=== PATIENT | female | born 2000 | race Caucasian/White ===

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

== ENCOUNTER → 2019-03-05 | Outpatient (CLI) | payer OTHER ==
[~2019-03-05] MED LIST changes: +IBUP800 PO
== END | disposition home or self-care (01) ==
LOC: LAB 15:41 → LAB SHORT 15:41
DX: Z34.00 Encounter for supervision of normal first pregnancy, unspecified trimester (principal)
CPT/HCPCS: 87081; 87653

== ENCOUNTER 2019-03-19 16:20 | Inpatient (IN) | payer OTHER ==
[~2019-03-19] VITALS: Ht 170.2 cm; Wt 77.3 kg
[~2019-03-19 16:20] MED LIST changes: -IBUP800 PO
[2019-03-19 17:10] LABS: BASOPHILS ABSOLUTE AUTO 0.03 K/mm3 (0.00-0.23); BASOPHILS PERCENT AUTO 0 % (0-2); EOSINOPHILS ABSOLUTE AUTO 0.09 K/mm3 (0.00-0.68); EOSINOPHILS PERCENT AUTO 1 % (0-6); Hematocrit 32.4 % (33.0-51.0); Hemoglobin 9.9 g/dL (11.5-16.0); IMMATURE GRAN ABSOLUTE AUTO 0.16 K/mm3 (0.00-0.10); IMMATURE GRAN PERCENT AUTO 2 % (0-1); LYMPHOCYTES ABSOLUTE AUTO 1.64 K/mm3 (0.84-5.20); LYMPHOCYTES PERCENT AUTO 18 % (21-46); MONOCYTES ABSOLUTE AUTO 0.85 K/mm3 (0.16-1.47); MONOCYTES PERCENT AUTO 9 % (4-13); Mean Corpuscular HGB 23.7 pg (26.0-34.0); Mean Corpuscular HGB Conc 30.6 g/dL (31.5-36.5); Mean Corpuscular Volume 78 fL (80-100); Mean Platelet Volume 11.1 fL (9.1-12.4); NEUTROPHILS ABSOLUTE AUTO 6.46 K/mm3 (1.96-9.15); NEUTROPHILS PERCENT AUTO 70 % (41-73); Platelet Count 208 K/mm3 (150-400); RDW Coefficient Variation 18.1 % (11.7-14.2); RDW Standard Deviation 48.4 fL (35.1-46.3); Red Blood Cell Count 4.17 M/mm3 (3.80-5.20); White Blood Cell Count 9.23 K/mm3 (4.00-11.30)
[2019-03-19 17:41] LABS: Alanine Aminotransfer (ALT/SGP 15 U/L (12-78); Albumin, Blood 2.4 g/dL (3.4-5.0); Albumin/Globulin Ratio 0.6 (0.8-1.8); Alk Phos 194 U/L (50-136); Anion Gap 7 mmol/L (6-16); Aspartate Aminotrans (AST/SGOT 16 U/L (12-37); Bilirubin, Total 0.3 mg/dL (0.1-1.0); Blood Urea Nitrogen 6 mg/dL (8-24); Bun/Creatinine Ratio 8.2 (12.0-20.0); CO2, Blood 25 mmol/L (21-32); Calcium, Blood 8.7 mg/dL (8.5-10.1); Chloride, Blood 107 mmol/L (98-108); Creatinine, Blood 0.73 mg/dL (0.40-1.00); Glomerular Filtration Rate >60 (60-); Glucose, Blood 84 mg/dL (70-99); Potassium, Blood 3.6 mmol/L (3.5-5.5); Sodium, Blood 139 mmol/L (136-145); Total Protein, Blood 6.4 g/dL (6.4-8.2)
[2019-03-19 18:36] LABS: Creatinine, Urine Random 72.8 mg/dL (27.00-270.00)
[2019-03-19 18:43] LABS: Protein, Urine Random 385.1 mg/dL (0.0-11.9); Protein/Creat Ratio, Ur Random 5.3
--- NOTE | 2019-03-19 19:00 | NUR ---
REPORT TO LAWN CARE WORKER. ADMITTED TO ROOM 118, ON HER WAY IN TO DECIDE ON ORDERS PT'S VE WAS 3 IN OFFICE TODAY.
--- NOTE | 2019-03-20 07:45 | NUR ---
ASSUMED CARE OF PT. REPORT RECEIVED FROM Lynn EDWARDS RN. I AGREE WITH PRIOR ASSESSMENT. PROVIDER AT BEDSIDE FOR VE. WILL PREPARE FOR PUSHING.
--- NOTE | 2019-03-20 14:03 | NUR ---
REPORT TO LUIS DANIEL HUYNH
[2019-03-21 05:14] LABS: Hemoglobin 8.1 g/dL (11.5-16.0); Mean Corpuscular HGB 23.1 pg (26.0-34.0); Mean Corpuscular Volume 77 fL (80-100); Mean Platelet Volume 11.3 fL (9.1-12.4); Platelet Count 146 K/mm3 (150-400); RDW Coefficient Variation 18.6 % (11.7-14.2); RDW Standard Deviation 49.1 fL (35.1-46.3); Red Blood Cell Count 3.51 M/mm3 (3.80-5.20); White Blood Cell Count 10.25 K/mm3 (4.00-11.30)
[2019-03-21] MEDS ORDERED: IBUP800 PO (11:09)
== END 2019-03-21 13:55 | disposition home or self-care (01) | DRG 807 ==
LOC: OBS 16:20 → BC 16:20 → OBS 19:01 → BC 19:02
PROVIDERS: ADMIT Obstetrics & Gynecology
PROC: 3E033VJ Introduction of Other Hormone into Peripheral Vein, Percutaneous Approach (ICD-10-PCS; 2019-03-19)
PROC: 10E0XZZ Delivery of Products of Conception, External Approach (ICD-10-PCS; principal; 2019-03-20)
PROC: 10907ZC Drainage of Amniotic Fluid, Therapeutic from Products of Conception, Via Natural or Artificial Opening (ICD-10-PCS; 2019-03-20)
PROC: 0HQ9XZZ Repair Perineum Skin, External Approach (ICD-10-PCS; 2019-03-20)
PROC: 3E0R3BZ Introduction of Anesthetic Agent into Spinal Canal, Percutaneous Approach (ICD-10-PCS; 2019-03-20)
DX: O14.94 Unspecified pre-eclampsia, complicating childbirth (principal); Z37.0 Single live birth; Z3A.37 37 weeks gestation of pregnancy; O70.0 First degree perineal laceration during delivery; O77.0 Labor and delivery complicated by meconium in amniotic fluid; Z87.891 Personal history of nicotine dependence
CPT/HCPCS: 36415; 51702; 59025; 80053; 82570; 84156; 85025; 85027; J1885; J2001; J2405; J2590; J3010; J7120

== ENCOUNTER → 2019-06-18 | Outpatient (CLI) | payer OTHER ==
[~2019-06-18] MED LIST changes: +IBUP800 PO
[2019-06-18 16:52] LABS: Source, Urine Clean Catch
[2019-06-18 18:17] LABS: Bilirubin, Urine Neg (Neg); Blood, Urine 5+ (Neg); Glucose Qualitative, Urine Neg (Neg); Ketones, Urine 1+ (Neg); Leukocyte Esterase, Urine 3+ (Neg); Nitrite, Urine Neg (Neg); Protein, Urine 3+ (Neg); Specific Gravity, Urine 1.015 (1.003-1.022); Urobilinogen, Urine NORM (Normal)
[2019-06-18 18:39] LABS: Appearance, Urine Clear (Clear); Color, Urine Yellow (P-Yellow)
[2019-06-18 18:40] LABS: White Blood Cells, Urine TNTC /hpf (0-5)
[2019-06-18 18:42] LABS: Bacteria Many /hpf; Squamous Epithelial Cells Few /hpf (Few); Yeast/Fungi Urine Rare /hpf
== END | disposition home or self-care (01) ==
LOC: LAB UCHC 15:00 → LAB 15:00 → LAB SHORT 15:00
PROVIDERS: Obstetrics & Gynecology
DX: R31.9 Hematuria, unspecified (principal)
CPT/HCPCS: 81001; 87077; 87086; 87186

== ENCOUNTER 2019-08-29 14:17 | Emergency (ER) | payer OTHER ==
[~2019-08-29] VITALS: Ht 170.2 cm; Wt 56.2 kg
[2019-08-29 15:29] LABS: Source, Urine Clean Catch
[2019-08-29 15:35] LABS: Bilirubin, Urine Neg (Neg); Blood, Urine 5+ (Neg); Glucose Qualitative, Urine Neg (Neg); Ketones, Urine 1+ (Neg); Leukocyte Esterase, Urine 3+ (Neg); Nitrite, Urine Neg (Neg); Protein, Urine 4+ (Neg); Urobilinogen, Urine 2+ (Normal)
[2019-08-29 15:40] LABS: Influenza A Negative (NEGATIVE); Influenza B Negative (NEGATIVE)
[2019-08-29 15:58] LABS: Appearance, Urine Cloudy (Clear); Color, Urine Amber (P-Yellow)
[2019-08-29 16:00] LABS: Red Blood Cells, Urine TNTC /hpf (0-2); White Blood Cells, Urine TNTC /hpf (0-5)
[2019-08-29 16:01] LABS: Bacteria Many /hpf; Squamous Epithelial Cells Mod /hpf (Few)
[2019-08-29] MEDS ORDERED: Macrobid 100 M100 MG PO (18:05)
[2019-08-29] MEDS ORDERED: Zofran4 MG PO (18:05)
== END 2019-08-29 18:17 | disposition home or self-care (01) ==
LOC: ER 14:17
PROVIDERS: Physician Assistant
DX: N39.0 Urinary tract infection, site not specified (principal); B34.9 Viral infection, unspecified; Z88.8 Allergy status to other drugs, medicaments and biological substances; Z87.891 Personal history of nicotine dependence
CPT/HCPCS: 81001; 81025; 87077; 87081; 87086; 87185; 87186; 87430; 87804; 99283; J1100

== ENCOUNTER 2020-09-06 09:45 | Emergency (ER) | payer OTHER ==
[~2020-09-06] VITALS: Ht 170.2 cm; Wt 52.2 kg
[~2020-09-06 09:45] MED LIST changes: +Macrobid 100 M100 MG PO; +Zofran4 MG PO
[2020-09-06] MEDS ORDERED: Zithromax250 MG PO (10:09)
== END 2020-09-06 11:00 | disposition home or self-care (01) ==
LOC: ER 09:45
DX: J02.0 Streptococcal pharyngitis (principal); Z88.1 Allergy status to other antibiotic agents; Z88.0 Allergy status to penicillin; Z88.8 Allergy status to other drugs, medicaments and biological substances
CPT/HCPCS: 99282; A9270; J1100

== ENCOUNTER → 2020-10-02 | Outpatient (CLI) | payer OTHER ==
[~2020-10-02] MED LIST changes: +Bactrim Ds Tab1 EACH PO; +Norco 5-325 Ta1 EACH PO; +ONDA4ODT MM; +Zithromax250 MG PO
[2020-10-06 16:08] LABS: CHLAMYDIA TRACHOMATIS, NAA Negative (Negative)
== END | disposition home or self-care (01) ==
LOC: PLD 19:16 → LAB SHORT 19:16
PROVIDERS: Obstetrics & Gynecology
DX: Z01.419 Encounter for gynecological examination (general) (routine) without abnormal findings (principal); Z11.3 Encounter for screening for infections with a predominantly sexual mode of transmission
CPT/HCPCS: 87491; 87591; G0123

== ENCOUNTER 2020-11-04 18:40 | Emergency (ER) | payer OTHER ==
[~2020-11-04] VITALS: Ht 170.2 cm; Wt 49.0 kg
[~2020-11-04 18:40] MED LIST changes: -Bactrim Ds Tab1 EACH PO; -Norco 5-325 Ta1 EACH PO; -ONDA4ODT MM
[2020-11-04 19:21] LABS: BASOPHILS ABSOLUTE AUTO 0.06 K/mm3 (0.00-0.23); BASOPHILS PERCENT AUTO 0 % (0-2); EOSINOPHILS ABSOLUTE AUTO 0.11 K/mm3 (0.00-0.68); EOSINOPHILS PERCENT AUTO 1 % (0-6); Hematocrit 41.9 % (33.0-51.0); IMMATURE GRAN ABSOLUTE AUTO 0.08 K/mm3 (0.00-0.10); IMMATURE GRAN PERCENT AUTO 0 % (0-1); LYMPHOCYTES ABSOLUTE AUTO 1.57 K/mm3 (0.84-5.20); LYMPHOCYTES PERCENT AUTO 8 % (21-46); MONOCYTES PERCENT AUTO 5 % (4-13); Mean Corpuscular HGB 26.9 pg (26.0-34.0); Mean Corpuscular HGB Conc 33.4 g/dL (31.5-36.5); Mean Corpuscular Volume 81 fL (80-100); Mean Platelet Volume 10.5 fL (9.1-12.4); NEUTROPHILS ABSOLUTE AUTO 16.73 K/mm3 (1.96-9.15); NEUTROPHILS PERCENT AUTO 86 % (41-73); Platelet Count 358 K/mm3 (150-400); RDW Coefficient Variation 13.6 % (11.7-14.2); RDW Standard Deviation 39.9 fL (35.1-46.3); White Blood Cell Count 19.55 K/mm3 (4.00-11.30)
[2020-11-04 19:44] LABS: Source, Urine Clean Catch
[2020-11-04 19:46] LABS: Alanine Aminotransfer (ALT/SGP 28 U/L (12-78); Albumin, Blood 4.4 g/dL (3.4-5.0); Albumin/Globulin Ratio 1.2 (0.8-1.8); Alk Phos 83 U/L (50-136); Anion Gap 6 mmol/L (6-16); Aspartate Aminotrans (AST/SGOT 14 U/L (12-37); Bilirubin, Total 0.3 mg/dL (0.1-1.0); Blood Urea Nitrogen 14 mg/dL (8-24); Bun/Creatinine Ratio 18.8 (12.0-20.0); CO2, Blood 27 mmol/L (21-32); Calcium, Blood 9.2 mg/dL (8.5-10.1); Chloride, Blood 106 mmol/L (98-108); Creatinine, Blood 0.75 mg/dL (0.40-1.00); Globulin, Blood 3.8 g/dL (2.2-4.0); Glomerular Filtration Rate >60 (60-); Glucose, Blood 122 mg/dL (70-99); Potassium, Blood 3.7 mmol/L (3.5-5.5); Sodium, Blood 139 mmol/L (136-145); Total Protein, Blood 8.2 g/dL (6.4-8.2)
[2020-11-04 19:49] LABS: Appearance, Urine Clear (Clear); Bilirubin, Urine Neg (Neg); Blood, Urine Neg (Neg); Color, Urine Amber (P-Yellow); Glucose Qualitative, Urine Neg (Neg); Ketones, Urine 1+ (Neg); Leukocyte Esterase, Urine 1+ (Neg); Nitrite, Urine Neg (Neg); Protein, Urine 2+ (Neg); Specific Gravity, Urine 1.025 (1.003-1.022); Urobilinogen, Urine 1+ (Normal)
[2020-11-04 19:55] LABS: Bacteria Many /hpf; Mucus Heavy (0-Heavy); Red Blood Cells, Urine 0-2 /hpf (0-2); Squamous Epithelial Cells Mod /hpf (Few)
[2020-11-04] MEDS ORDERED: ONDA4ODT MM (23:06)
[2020-11-04] MEDS ORDERED: Bactrim Ds Tab1 EACH PO (23:06)
== END 2020-11-04 23:46 | disposition home or self-care (01) ==
LOC: ER 18:40
PROVIDERS: Physician Assistant
DX: K52.9 Noninfective gastroenteritis and colitis, unspecified (principal); Z88.1 Allergy status to other antibiotic agents; Z88.0 Allergy status to penicillin; Z87.891 Personal history of nicotine dependence
CPT/HCPCS: 36415; 74177; 80053; 81001; 81025; 83690; 85025; 87077; 87086; 87186; 96361; 96374-59; 96375; 99284-25; A9270; J2405; J3010; J7030; Q9967

== ENCOUNTER 2021-02-09 12:32 | Emergency (ER) | payer OTHER ==
[~2021-02-09] VITALS: Ht 170.2 cm; Wt 52.2 kg
[~2021-02-09 12:32] MED LIST changes: +Bactrim Ds Tab1 EACH PO; +ONDA4ODT MM
[2021-02-09 13:26] LABS: BASOPHILS ABSOLUTE AUTO 0.04 K/mm3 (0.00-0.23); BASOPHILS PERCENT AUTO 1 % (0-2); EOSINOPHILS ABSOLUTE AUTO 0.07 K/mm3 (0.00-0.68); EOSINOPHILS PERCENT AUTO 1 % (0-6); Hematocrit 38.9 % (33.0-51.0); Hemoglobin 13.1 g/dL (11.5-16.0); IMMATURE GRAN ABSOLUTE AUTO 0.03 K/mm3 (0.00-0.10); IMMATURE GRAN PERCENT AUTO 0 % (0-1); LYMPHOCYTES ABSOLUTE AUTO 1.89 K/mm3 (0.84-5.20); LYMPHOCYTES PERCENT AUTO 26 % (21-46); MONOCYTES ABSOLUTE AUTO 0.46 K/mm3 (0.16-1.47); MONOCYTES PERCENT AUTO 6 % (4-13); Mean Corpuscular HGB 28.7 pg (26.0-34.0); Mean Corpuscular HGB Conc 33.7 g/dL (31.5-36.5); Mean Corpuscular Volume 85 fL (80-100); Mean Platelet Volume 10.4 fL (9.1-12.4); NEUTROPHILS ABSOLUTE AUTO 4.69 K/mm3 (1.96-9.15); NEUTROPHILS PERCENT AUTO 65 % (41-73); Platelet Count 181 K/mm3 (150-400); RDW Coefficient Variation 15.6 % (11.7-14.2); RDW Standard Deviation 48.3 fL (35.1-46.3); Red Blood Cell Count 4.57 M/mm3 (3.80-5.20); White Blood Cell Count 7.18 K/mm3 (4.00-11.30)
[2021-02-09 13:51] LABS: Alanine Aminotransfer (ALT/SGP 20 U/L (12-78); Albumin, Blood 4.3 g/dL (3.4-5.0); Albumin/Globulin Ratio 1.3 (0.8-1.8); Alk Phos 66 U/L (50-136); Anion Gap 3 mmol/L (6-16); Aspartate Aminotrans (AST/SGOT 10 U/L (12-37); Bilirubin, Total 0.2 mg/dL (0.1-1.0); Blood Urea Nitrogen 16 mg/dL (8-24); Bun/Creatinine Ratio 19.5 (12.0-20.0); CO2, Blood 29 mmol/L (21-32); Calcium, Blood 9.2 mg/dL (8.5-10.1); Chloride, Blood 107 mmol/L (98-108); Creatinine, Blood 0.82 mg/dL (0.40-1.00); Globulin, Blood 3.2 g/dL (2.2-4.0); Glomerular Filtration Rate >60 (60-); Glucose, Blood 89 mg/dL (70-99); Potassium, Blood 3.8 mmol/L (3.5-5.5); Sodium, Blood 139 mmol/L (136-145); Total Protein, Blood 7.5 g/dL (6.4-8.2)
[2021-02-09] MEDS ORDERED: Norco 5-325 Ta1 EACH PO (15:04)
== END 2021-02-09 15:25 | disposition home or self-care (01) ==
LOC: ER 12:32
PROVIDERS: Physician Assistant
DX: N93.9 Abnormal uterine and vaginal bleeding, unspecified (principal); Z88.1 Allergy status to other antibiotic agents; Z88.0 Allergy status to penicillin; Z88.8 Allergy status to other drugs, medicaments and biological substances
CPT/HCPCS: 36415; 76830; 76856; 80053; 85025; 96374; 99284-25; J1885

== ENCOUNTER → 2021-09-09 | Outpatient (CLI) | payer OTHER ==
[~2021-09-09] MED LIST changes: +Norco 5-325 Ta1 EACH PO
[2021-09-09 14:34] LABS: Candida species (DNA Probe) Negative (NEGATIVE); G. vaginalis (DNA Probe) Positive (NEGATIVE); T. vaginalis (DNA Probe) Negative (NEGATIVE)
[2021-09-11 21:06] LABS: CHLAMYDIA TRACHOMATIS, NAA Positive (Negative)
== END | disposition home or self-care (01) ==
LOC: LAB SHORT 10:42
PROVIDERS: Obstetrics & Gynecology
DX: N89.8 Other specified noninflammatory disorders of vagina (principal); A74.9 Chlamydial infection, unspecified
CPT/HCPCS: 87480; 87491; 87510; 87591; 87660

== ENCOUNTER → 2021-12-23 | Outpatient (CLI) | payer OTHER ==
[2021-12-25 02:08] LABS: CHLAMYDIA TRACHOMATIS, NAA Negative (Negative)
== END | disposition home or self-care (01) ==
LOC: LAB 14:07 → LAB SHORT 14:07
PROVIDERS: Obstetrics & Gynecology
DX: Z11.3 Encounter for screening for infections with a predominantly sexual mode of transmission (principal)
CPT/HCPCS: 87491; 87591

== ENCOUNTER 2022-01-02 14:04 | Emergency (ER) | payer OTHER ==
[~2022-01-02] VITALS: Ht 170.2 cm; Wt 61.7 kg
[2022-01-02 14:33] LABS: BASOPHILS ABSOLUTE AUTO 0.04 K/mm3 (0.00-0.23); BASOPHILS PERCENT AUTO 1 % (0-2); EOSINOPHILS ABSOLUTE AUTO 0.28 K/mm3 (0.00-0.68); EOSINOPHILS PERCENT AUTO 4 % (0-6); Hematocrit 42.2 % (33.0-51.0); Hemoglobin 14.5 g/dL (11.5-16.0); IMMATURE GRAN ABSOLUTE AUTO 0.02 K/mm3 (0.00-0.10); IMMATURE GRAN PERCENT AUTO 0 % (0-1); LYMPHOCYTES ABSOLUTE AUTO 2.14 K/mm3 (0.84-5.20); LYMPHOCYTES PERCENT AUTO 33 % (21-46); MONOCYTES PERCENT AUTO 8 % (4-13); Mean Corpuscular HGB 29.7 pg (26.0-34.0); Mean Corpuscular HGB Conc 34.4 g/dL (31.5-36.5); Mean Corpuscular Volume 87 fL (80-100); Mean Platelet Volume 10.1 fL (9.1-12.4); NEUTROPHILS ABSOLUTE AUTO 3.58 K/mm3 (1.96-9.15); NEUTROPHILS PERCENT AUTO 55 % (41-73); Platelet Count 195 K/mm3 (150-400); RDW Coefficient Variation 12.2 % (11.7-14.2); RDW Standard Deviation 38.6 fL (35.1-46.3); Red Blood Cell Count 4.88 M/mm3 (3.80-5.20); White Blood Cell Count 6.56 K/mm3 (4.00-11.30)
[2022-01-02] MEDS ORDERED: SERT25 PO (14:37)
[2022-01-02 14:58] LABS: Alanine Aminotransfer (ALT/SGP 24 U/L (12-78); Albumin, Blood 4.7 g/dL (3.4-5.0); Albumin/Globulin Ratio 1.5 (0.8-1.8); Alk Phos 72 U/L (50-136); Anion Gap 7 mmol/L (6-16); Aspartate Aminotrans (AST/SGOT 15 U/L (12-37); Bilirubin, Total 0.3 mg/dL (0.1-1.0); Blood Urea Nitrogen 8 mg/dL (8-24); Bun/Creatinine Ratio 12.1 (12.0-20.0); CO2, Blood 29 mmol/L (21-32); Calcium, Blood 9.3 mg/dL (8.5-10.1); Chloride, Blood 103 mmol/L (98-108); Creatinine, Blood 0.66 mg/dL (0.40-1.00); Globulin, Blood 3.2 g/dL (2.2-4.0); Glomerular Filtration Rate >60 (60-); Glucose, Blood 96 mg/dL (70-99); Potassium, Blood 3.5 mmol/L (3.5-5.5); Sodium, Blood 139 mmol/L (136-145); Total Protein, Blood 7.9 g/dL (6.4-8.2)
[2022-01-02 15:01] LABS: Source, Urine Clean Catch
[2022-01-02 15:07] LABS: Appearance, Urine Clear (Clear); Bilirubin, Urine Neg (Neg); Blood, Urine Neg (Neg); Color, Urine Yellow (P-Yellow); Glucose Qualitative, Urine Neg (Neg); Ketones, Urine Neg (Neg); Leukocyte Esterase, Urine Neg (Neg); Nitrite, Urine Neg (Neg); Protein, Urine Neg (Neg); Urobilinogen, Urine NORM (Normal)
== END 2022-01-02 15:40 | disposition home or self-care (01) ==
LOC: ER 14:04
PROVIDERS: Physician Assistant
DX: K62.5 Hemorrhage of anus and rectum (principal); Z87.891 Personal history of nicotine dependence; Z79.899 Other long term (current) drug therapy
CPT/HCPCS: 36415; 80053; 81003; 81025; 83690; 85025

== ENCOUNTER → 2022-01-07 | Outpatient (CLI) | payer OTHER ==
[~2022-01-07] MED LIST changes: +SERT25 PO
== END | disposition home or self-care (01) ==
LOC: LAB SHORT 15:06 → LAB 15:06
PROVIDERS: Obstetrics & Gynecology
DX: Z01.419 Encounter for gynecological examination (general) (routine) without abnormal findings (principal)
CPT/HCPCS: G0123

== ENCOUNTER → 2022-01-20 | Outpatient (CLI) | payer OTHER | END | disposition home or self-care (01) | LOC: LAB 13:45 → LAB SHORT 13:45 | DX: N32.89 Other specified disorders of bladder (principal) | CPT/HCPCS: 88305 ==

== ENCOUNTER 2022-01-24 09:15 | Emergency (ER) | payer OTHER ==
[~2022-01-24] VITALS: Ht 170.2 cm; Wt 61.7 kg
== END 2022-01-24 11:39 | disposition home or self-care (01) ==
LOC: ER 09:15
DX: G44.89 Other headache syndrome (principal); R09.89 Other specified symptoms and signs involving the circulatory and respiratory systems; Z79.899 Other long term (current) drug therapy; Z88.1 Allergy status to other antibiotic agents; Z88.0 Allergy status to penicillin
CPT/HCPCS: 99283

== ENCOUNTER → 2022-04-02 | Outpatient (CLI) | payer OTHER ==
[2022-04-02 18:08] LABS: Source, Urine Clean Catch
[2022-04-02 20:19] LABS: Bacteria Many /hpf; Mucus Light (0-Heavy); Red Blood Cells, Urine 0-2 /hpf (0-2); Squamous Epithelial Cells Few /hpf (Few); White Blood Cells, Urine 0-2 /hpf (0-5)
== END ==
LOC: LAB SHORT 18:07
PROVIDERS: Advanced Practice Midwife
DX: Z34.81 Encounter for supervision of other normal pregnancy, first trimester (principal); Z3A.00 Weeks of gestation of pregnancy not specified
CPT/HCPCS: 81015; 87086

== ENCOUNTER 2022-11-14 20:50 | Inpatient (IN) | payer OTHER ==
[~2022-11-14] VITALS: Ht 170.2 cm; Wt 71.9 kg
[~2022-11-14 20:50] MED LIST changes: +Triamcinolone A15 G3 TOP
[2022-11-14] MEDS ORDERED: PRENATAL TABLE1 EAC2 PO (22:15)
[2022-11-14 22:22] LABS: BASOPHILS ABSOLUTE AUTO 0.09 K/mm3 (0.00-0.23); BASOPHILS PERCENT AUTO 1 % (0-2); EOSINOPHILS ABSOLUTE AUTO 0.29 K/mm3 (0.00-0.68); EOSINOPHILS PERCENT AUTO 3 % (0-6); Hematocrit 38.4 % (33.0-51.0); Hemoglobin 13.4 g/dL (11.5-16.0); IMMATURE GRAN ABSOLUTE AUTO 0.31 K/mm3 (0.00-0.10); IMMATURE GRAN PERCENT AUTO 3 % (0-1); LYMPHOCYTES ABSOLUTE AUTO 2.29 K/mm3 (0.84-5.20); LYMPHOCYTES PERCENT AUTO 20 % (21-46); MONOCYTES ABSOLUTE AUTO 1.08 K/mm3 (0.16-1.47); MONOCYTES PERCENT AUTO 10 % (4-13); Mean Corpuscular HGB 30.7 pg (26.0-34.0); Mean Corpuscular HGB Conc 34.9 g/dL (31.5-36.5); Mean Corpuscular Volume 88 fL (80-100); Mean Platelet Volume 10.9 fL (9.1-12.4); NEUTROPHILS ABSOLUTE AUTO 7.28 K/mm3 (1.96-9.15); NEUTROPHILS PERCENT AUTO 64 % (41-73); Platelet Count 162 K/mm3 (150-400); RDW Coefficient Variation 13.3 % (11.7-14.2); RDW Standard Deviation 42.5 fL (35.1-46.3); Red Blood Cell Count 4.37 M/mm3 (3.80-5.20); White Blood Cell Count 11.34 K/mm3 (4.00-11.30)
--- NOTE | 2022-11-16 14:59 | NUR ---
Assumed care from Bing Grande RN.
[2022-11-16] MEDS ORDERED: IBU800 M1 PO (16:36)
== END 2022-11-17 10:40 | disposition home or self-care (01) | DRG 807 ==
LOC: OBS 20:50 → BC 20:51 → OBS 21:19 → BC 21:21
PROVIDERS: ADMIT Advanced Practice Midwife
PROC: 10E0XZZ Delivery of Products of Conception, External Approach (ICD-10-PCS; principal; 2022-11-15)
PROC: 3E0R3BZ Introduction of Anesthetic Agent into Spinal Canal, Percutaneous Approach (ICD-10-PCS; 2022-11-15)
PROC: 00HU33Z Insertion of Infusion Device into Spinal Canal, Percutaneous Approach (ICD-10-PCS; 2022-11-15)
PROC: 10H07YZ Insertion of Other Device into Products of Conception, Via Natural or Artificial Opening (ICD-10-PCS; 2022-11-15)
DX: O42.02 Full-term premature rupture of membranes, onset of labor within 24 hours of rupture (principal); Z37.0 Single live birth; O99.344 Other mental disorders complicating childbirth; F41.8 Other specified anxiety disorders; O66.0 Obstructed labor due to shoulder dystocia; O76 Abnormality in fetal heart rate and rhythm complicating labor and delivery; Z3A.38 38 weeks gestation of pregnancy; Z98.890 Other specified postprocedural states; Z88.0 Allergy status to penicillin; Z88.8 Allergy status to other drugs, medicaments and biological substances; Z88.1 Allergy status to other antibiotic agents; Z79.899 Other long term (current) drug therapy
CPT/HCPCS: 36415; 51702; 85025; 86850; 86900; 86901; A9270; J1885; J2210; J2590; J3010; J7120

== ENCOUNTER → 2022-12-27 | Outpatient (CLI) | payer OTHER ==
[~2022-12-27] MED LIST changes: +IBU800 M1 PO; +PRENATAL TABLE1 EAC2 PO
== END | disposition home or self-care (01) ==
LOC: LAB 14:34 → LAB SHORT 14:34
PROVIDERS: Advanced Practice Midwife
DX: Z01.419 Encounter for gynecological examination (general) (routine) without abnormal findings (principal)
CPT/HCPCS: G0145

== ENCOUNTER → 2025-03-08 | Outpatient (CLI) | payer OTHER | END | disposition home or self-care (01) | LOC: LAB SHORT 13:23 → LAB 13:23 | PROVIDERS: Advanced Practice Midwife | DX: Z01.419 Encounter for gynecological examination (general) (routine) without abnormal findings (principal) | CPT/HCPCS: G0123 ==